=== PATIENT | male | born 1950 | race Asian ===

== ENCOUNTER 2019-02-04 13:57 | Emergency (ER) | payer MEDICARE, OTHER ==
[~2019-02-04] VITALS: Ht 172.7 cm; Wt 81.6 kg
[2019-02-04 14:02] VITALS: Ht 172.7 cm; Wt 81.6 kg
[2019-02-04 16:49] VITALS: BP 132/87
== END 2019-02-04 16:49 | disposition home or self-care (01) ==
LOC: ED 13:57
DX: S16.1XXA Strain of muscle, fascia and tendon at neck level, initial encounter (principal); S39.012A Strain of muscle, fascia and tendon of lower back, initial encounter; S53.402A Unspecified sprain of left elbow, initial encounter; V43.52XA Car driver injured in collision with other type car in traffic accident, initial encounter; Y93.I9 Activity, other involving external motion; Y92.488 Other paved roadways as the place of occurrence of the external cause; Y99.8 Other external cause status